=== PATIENT | female | born 1980 | race Hispanic/Latino ===

== ENCOUNTER → 2024-07-22 | Outpatient (CLI) | payer BC ==
--- NOTE | 2024-07-23 01:49 | HMCSR ---
APPROVED REPORT EXAM: Limited two-dimensional and M-mode echocardiogram with Doppler and color Doppler. INDICATION ICD: I42.9 2D Dimensions RVDd2.8 cmLVEF(%)62.1 (>50%)LVED Vol(simp.)90.4 mL IVSd0.8 (0.7-1.1cm)FS(%)33 %LVES Vol(simp.)39.4 mL LVDd4.2 (3.8-5.6cm)LA (2D)3.3 (1.6-4.0cm)LVEF(%, simp.)56 % PWd0.6 (0.7-1.1cm)LVOT diam2.0 (1.8-2.4cm) IVSs0.8 cm LVDs2.8 (2.5-4.0cm) PWs0.9 cm Aortic Valve AoV Vmax1.3 m/[place] Peak GR6.6 mmHgLVOT Vmax0.8 m/s AoV VTI0.3 mAo Mean GR3.5 mmHgLVOT VTI0.19 m ARTEMIO (VMAX)2.3 cm2AVA (VTI) 2.3 cm2 Mitral Valve MV E Vmax63.7 cm/sDECEL Tcrv219 ms MV A Vmax56.8 cm/sP 1/2 T49 ms E/A ratio1.1MVA (PHT)4.5 cm2 TDI E/E' Medial6.3 Tricuspid Valve RAP (EST) 8 mmHgRVSP8.0 mmHg Left Ventricle The left ventricle is normal size. Normal wall motion There is normal left ventricular wall thickness . The LVEF is > 55%. The left ventricular diastolic function is normal. Right Ventricle The right ventricle is normal size. The right ventricular systolic function is normal. Atria The left atrium size is normal. The right atrium size is normal. Aortic Valve The aortic valve is normal in structure. No aortic regurgitation is present. There is no aortic valvu lar stenosis. Mitral Valve The mitral valve is normal in structure. There is no mitral valve regurgitation noted. There is no mi tral valve stenosis. Tricuspid Valve The tricuspid valve is normal in structure. There is no tricuspid valve regurgitation noted. Pulmonic Valve The pulmonary valve is normal in structure. There is no pulmonic valvular regurgitation. Great Vessels The aortic root is normal in size. The IVC is normal in size and collapses >50% with inspiration. Pericardium There is no pericardial effusion. Other Information Quality : Adequate Conclusion The LVEF is > 55%. The left ventricular diastolic function is normal. There is normal left ventricular wall thickness. The left ventricle is normal size. Normal wall motion There is no pericardial effusion. Study quality was adequate
== END | disposition home or self-care (01) ==
LOC: RAH 14:38
PROVIDERS: ATTEND Internal Medicine Cardiovascular Disease
DX: I42.9 Cardiomyopathy, unspecified (principal)
CPT/HCPCS: 93308